=== PATIENT | female | born 1950 | race Caucasian/White ===

== ENCOUNTER → 2020-06-08 11:14 | Outpatient (CLI) | payer MEDICARE, MEDICAID, SELFPAY ==
--- NOTE | 2020-06-08 11:19 | DI.RAD.S_ITS ---
PROCEDURE: XR LUMBAR SPINE MIN 4V INDICATIONS: UPDATE IMAGING TECHNIQUE: 5 views of the lumbar spine were acquired. COMPARISON: None. FINDINGS: Bones: No fracture. Multilevel degenerative endplate sclerosis and spurring. Diffuse facet arthropathy. Severe narrowing of the L3-L4, L4-L5 disc spaces. Straightening of the normal lordotic curvature. Mild levocurvature. Soft tissues: Overlying bowel gas pattern is normal. No suspicious soft tissue calcifications. Scattered surgical clips incidentally noted. Oblique images: No pars defects. IMPRESSION: Severe lower lumbar spondylosis and facet arthropathy. Mild levocurvature Dictated by: James Olson M.D. on 06/08/2020 at 12:13 Approved by: James Olson M.D. on 06/08/2020 at 12:15
== END ==
PROVIDERS: PCP Physician Assistant; Referring Provider Physical Medicine & Rehabilitation; Visit Provider Physical Medicine & Rehabilitation
DX: M54.9 Dorsalgia, unspecified (principal); M47.24 Other spondylosis with radiculopathy, thoracic region; M47.26 Other spondylosis with radiculopathy, lumbar region; G89.21 Chronic pain due to trauma; Z87.898 Personal history of other specified conditions
CPT/HCPCS: 72110; 99214